=== PATIENT | male | born 2000 | race Caucasian/White ===

== ENCOUNTER 2021-05-24 12:41 | Emergency (ER) | payer BC, MEDICAID, SELFPAY ==
--- NOTE | ~2021-05-24 | XR_ITS ---
EXAMINATION: LEFT WRIST X-RAY CLINICAL INFORMATION: Pain COMPARISON: None TECHNIQUE: 4 views of the left wrist FINDINGS: Bone alignment is normal. No fracture or dislocation is seen. Joint spaces are normal. Soft tissues are normal. XR/XR hand wrist LT IMPRESSION: Normal left wrist.
--- NOTE | ~2021-05-24 | XR_ITS ---
EXAMINATION: LEFT SHOULDER AND ELBOW X-RAY CLINICAL INFORMATION: Fall COMPARISON: None TECHNIQUE: 4 views of the left shoulder and 3 views of the left elbow FINDINGS: Left shoulder: Bone alignment is normal. No fracture or dislocation is seen. The joint spaces are normal. Soft tissues are normal. Left elbow: Bone alignment is normal. No fracture or dislocation is seen. Joint spaces are normal. There is no joint effusion. XR/XR elbow LT min 3V IMPRESSION: Normal left shoulder and left elbow exam.
--- NOTE | ~2021-05-24 | XR_ITS ---
EXAMINATION: LEFT SHOULDER AND ELBOW X-RAY CLINICAL INFORMATION: Fall COMPARISON: None TECHNIQUE: 4 views of the left shoulder and 3 views of the left elbow FINDINGS: Left shoulder: Bone alignment is normal. No fracture or dislocation is seen. The joint spaces are normal. Soft tissues are normal. Left elbow: Bone alignment is normal. No fracture or dislocation is seen. Joint spaces are normal. There is no joint effusion. XR/XR shoulder LT min 2V IMPRESSION: Normal left shoulder and left elbow exam.
[2021-05-24 13:04] VITALS: BP 135/74; PULSE 74; RESP 18; TEMP 37.2; O2SAT 100; BMI 18.4
--- NOTE | 2021-05-24 14:18 | ED_ITS ---
HPI - Extremity Problem General Chief complaint: Extremity Injury, Upper Stated complaint: lt wrist injury Time Seen by Provider: 05/24/21 14:18 Source: patient Mode of arrival: ambulatory Limitations: no limitations History of Present Illness HPI Narrative: This is a 20-year-old male that presents to the emergency department with left hand, wrist and elbow pain since this morning. He states he was at work earlier this morning ([employer]) when he slipped and fell on ice coffee and fell back onto an open hand. He states he immediately started having 10/10 wrist pain. He states that the wrist pain is worse with movement better at rest. He also expresses a vague elbow, and shoulder discomfort. He is able to move wrist, elbow and shoulder however, he is in pain. He states he did not hit his head when he fell, he did not lose consciousness, he is not on blood thinners denies chest pain, shortness of breath, fevers, chills, numbness, tingling, paresthesias. He is right-hand dominant MD Complaint: extremity pain Onset (ago): hour(s) (5) Pain Consistency: constant Location: left, upper extremity and elbow Severity scale (1-10): 10 Quality: sharp Radiation: none Relieving factors: immobilization Exacerbating factors: range of motion and palpation Associated symptoms: denies other symptoms Context: other (Work related injury) Related Data Previous Rx's Medication Instructions Recorded cyclobenzaprine 10 mg tablet 10 mg PO Q8H #10 tab 05/24/21 oxycodone 5 mg tablet 5 mg PO Q6H PRN #4 tab 05/24/21 Allergies Allergy/AdvReac Type Severity Reaction Status Date / Time aspirin [ASA] Allergy Facial Verified 05/24/21 13:36 Swelling mesalamine [From Asacol] Allergy Facial Verified 05/24/21 13:36 Swelling Review of Systems Review of Systems: Constitutional : No Weight loss, No Fever, No Chills, No Night Sweats, No Fatigue, No Malaise ENT/Mouth : No Hearing loss, No Ear Pain, No Nasal Congestion, No Sinus Pain, No Hoarseness, No sore throat, No Rhinorrhea, No Swallowing Difficulty Eyes: No Eye Pain, No Swelling, No Redness, No Foreign Body, No Discharge, No Vision Changes Cardiovascular : No Chest Pain, No SOB, No Dyspnea on Exertion, No Orthopnea, No Edema, No Palpitations Respiratory : No Cough, No Sputum, No Wheezing, No Smoke Exposure, No Dyspnea Gastrointestinal : No Nausea, No Vomiting, No Diarrhea, No Constipation, No abdominal Pain, No Hematochezia, No Melena Genitourinary : no irregular bleeding, No Dysuria, No Urinary Frequency, No Hematuria, No Urinary Incontinence, No Urgency, No Flank Pain, No Urinary Flow Changes, No Hesitancy Musculoskeletal : + pain to the left hand, wrist, elbow, shoulder, No Myalgias, No Joint Swelling Skin : No Skin Lesions, No rash Neuro : No Weakness, No Numbness, No Paresthesias, No Loss of Consciousness, No Dizziness, No Headache Psych : No Anxiety/Panic, No Depression, No SI/HI/AH/VH, No Social Issues, Heme/Lymph: No Bruising, No Bleeding,No Lymphadenopathy Endocrine : No Polyuria, No Polydipsia, No Temperature Intolerance Yes all other systems are reviewed and are negative [facility] Past Medical History Attestation statement: The following information was validated with the patient. Medical History ADHD Surgical History H/O ileostomy Social History Social History Advance Directives: No Physical Exam Vital Signs: Vital Signs: Last Vital Signs Temp 99 F 05/24/21 13:04 Pulse 74 05/24/21 13:04 Resp 18 05/24/21 13:04 BP 135/74 05/24/21 13:04 Pulse Ox 100 05/24/21 13:04 Body Mass Index 18.4 vital signs have been reviewed as normal and appeared to be correct. Blood pressure normal. Heart rate normal. Respiration rate normal. Temperature normal. Oxygen saturation normal. Appearance: Alert. Oriented X3. No acute distress. Head: Normal external exam. Normocephalic. Eyes: PERRLA. EOMI. Conjunctiva and sclera normal. Eyelids normal. ENT: Pharynx normal. Uvula midline. Moist mucous membranes. Neck: Normal inspection. Neck supple. FROM. No adenopathy. No meningeal signs. CVS: Normal heart rate and rhythm. Heart sound normal. No murmurs noted. Pulses normal throughout. Respiratory: No respiratory distress. Painless inspiration. Breath sounds normal. No wheezes/rales/rhonchi noted. Chest nontender. No accessory muscle usage noted or decreased air movement noted. Abdomen: Soft and nontender. Nondistended. No guarding. No rigidity. Bowel sounds normal in all 4 quadrants. No distention noted. No organomegaly noted. No visible injury noted. No rebound tenderness. Negative Rovsing sign. Negative obturator's sign. Negative psoas sign. Negative Recinos sign. Back: Full range of motion noted. Skin: Skin warm and dry. Normal skin color. Normal skin turgor. No rashes/lesions/lacerations noted. Extremities: + Extremities (left hand, wrist, elbow, shoulder) exhibit normal/painful range of motion. + Extremities (left hand, wrist, elbow, shou lder) tender to palpation . No overlying skin changes, or erythema. Good distal pulses, good capillary refill. Good sensation. No obvious ligamentous/tendon laxity or injury. No muscle rupture/tear noted on my exam. Neuro: Oriented X 3. No motor deficit. No sensory deficit. Reflexes normal. Normal steady gait. Course Course Course Narrative: This is a 20-year-old male that presents to the emergency department status post fall onto an open hand (left side) at work. He states he slipped on ice coffee, fell backwards Miller himself on his left hand, immediately after he started having had 10 wrist pain, although discomfort, and shoulder discomfort. He states that the pain is worse with movement, better at rest. He denies paresthesias, numbness, tingling, chest pain, shortness of breath, fevers, chills. He is right-hand dominant On physical examination he had pain to palpation over the laughed dorsal aspect of the hand, medium model aspects of the elbow, in the bony process distal aspect of the shoulder. He also had pain with supination and pronation while palpating the radial head, concerning for radial head fracture. He has full range of motion to the wrist, elbow and shoulder however it is painful. For this reason an additional x-ray will be ordered. The neurological exam is intact. An x-ray of the hand/wrist has been ordered. Will also order an x-ray of the left elbow, and left shoulder. Reevaluation(s) Reevaluation #1: X-ray of the left wrist is normal. X-ray of the left shoulder and also also normal. Plan is to discharge home with a wrist splint to left hand . He should follow up with His PCP, and/or Orthopedics if his symptoms do not improve in 2 weeks. He will be sent home on medications to help his pain. MDM - Extremity (Nontraumatic) Medical Records Attestation: I reviewed the patient's medical records. Imaging Data X-ray of left wrist: Attestation: I personally reviewed and interpreted this imaging study as follows: Radiologist's impression: FINDINGS: Bone alignment is normal. No fracture or dislocation is seen. Joint spaces are normal. Soft tissues are normal.? XR/XR hand wrist LT IMPRESSION: Normal left wrist Discharge Plan Discharge Clinical Impression: Sprain and strain of wrist, Sprain of elbow, left, Shoulder sprain, Work related injury Patient Disposition: Home, Self-Care Instructions: Wrist Injury (ED), Elbow Sprain (ED), Shoulder Sprain (ED), Wrist Sprain (ED) Additional Instructions: Taking medications as prescribed. You have been prescribed oxycodone for SEVERE pain and you been educated that this medication can cause addiction. Take naproxen if the pain is not severe. Follow-up with your PCP in 2 days, or orthopedics if new or worsening symptoms after 2-3 weeks. This was a work related injuries to use can follow up with workmen's Comp Return to the emergency department with new or worsening symptoms Prescriptions: New oxycodone 5 mg tablet 5 mg PO Q6H PRN (Reason: pain) Qty: 4 RF: 0 cyclobenzaprine 10 mg tablet 10 mg PO Q8H Qty: 10 RF: 0 Stand Alone Forms: Work/School Release
== END 2021-05-24 15:32 | disposition home or self-care (01) ==
PROVIDERS: Emergency Provider Emergency Medicine; PCP Internal Medicine
DX: S63.502A Unspecified sprain of left wrist, initial encounter (principal); S53.402A Unspecified sprain of left elbow, initial encounter; S43.402A Unspecified sprain of left shoulder joint, initial encounter; M79.602 Pain in left arm; W01.0XXA Fall on same level from slipping, tripping and stumbling without subsequent striking against object, initial encounter; Y93.9 Activity, unspecified; Y92.511 Restaurant or cafe as the place of occurrence of the external cause; Y99.9 Unspecified external cause status; Z79.899 Other long term (current) drug therapy
CPT/HCPCS: 29125; 73030; 73080; 73110; 73130; 99283; 99284